=== PATIENT | male | born 1940 | race Caucasian/White ===

== ENCOUNTER 2016-06-29 07:05 | Emergency (ER) | payer MEDICARE, BC, OTHER ==
[2016-06-29] MEDS: SODIUM CHLORIDE 0.9% 500 ML IV ONE ×2 (07:57→09:07)
[2016-06-29 08:04] LABS: HEMATOCRIT 46.7 % (42.0-52.0); HEMOGLOBIN 15.4 gm/dl (14.0-18.0); MEAN CELL VOLUME 98.3 fl (81-97); MEAN CORPUSCULAR HEMOGLOBIN 32.4 pg (27-33); MEAN PLATELET VOLUME 11.4 fl (7.4-10.4); PLATELET COUNT 177 K/uL (130-400); RED BLOOD COUNT 4.75 M/uL (4.40-5.70); RED CELL DISTRIBUTION WIDTH 12.9 % (11.5-14.5); WHITE BLOOD COUNT W/O DIFF 11.9 K/uL (4.2-12.2)
[2016-06-29 08:13] LABS: STREP A SCREEN NEGATIVE (NEGATIVE)
[2016-06-29 08:16] LABS: LACTIC ACID 2.5 mmol/L (0.7-2.1)
[2016-06-29 08:18] LABS: BLOOD UREA NITROGEN 24 mg/dL (9-20); CREATININE 1.2 mg/dL (0.66-1.25); EST GLOMERULAR FILTRATION RATE > 60 ml/min; GLUCOSE,RANDOM 96 mg/dL (70-110); TOTAL PROTEIN 7.7 gm/dL (6.3-8.2)
[2016-06-29 08:19] LABS: ALB/GLOB RATIO 1.3 (1.1-1.8); ALBUMIN 4.3 gm/dL (3.5-5.0); ALKALINE PHOSPHATASE 80 U/L (38-126); ALT/SGPT 17 U/L (21-72); AST/SGOT 34 U/L (17-59); PLATELET ESTIMATE NORMAL (NORMAL)
[2016-06-29 08:20] LABS: INFLUENZA A NEGATIVE (NEGATIVE); INFLUENZA B NEGATIVE (NEGATIVE)
[2016-06-29 08:54] LABS: URINE APPEARANCE CLEAR; URINE BILIRUBIN NEGATIVE (NEGATIVE); URINE BLOOD SMALL (NEGATIVE); URINE COLOR YELLOW; URINE GLUCOSE (UA) NEGATIVE (NEGATIVE); URINE KETONE NEGATIVE (NEGATIVE); URINE LEUKOCYTE ESTERASE NEGATIVE (NEGATIVE); URINE NITRITE NEGATIVE (NEGATIVE); URINE PROTEIN NEGATIVE (NEGATIVE); URINE UROBILINOGEN 0.2 E.U./dL (0.20 - 1.00)
[2016-06-29 09:12] LABS: URINE EPITHELIAL CELLS NONE SEEN (FEW); URINE WBC NONE SEEN (0-2/hpf)
--- NOTE | 2016-06-29 09:40 | Emergency Department Record ---
History of Present Illness - General Chief Complaint: Dizziness Stated Complaint: DIZZY/FEVER/BALANCE OFF Time Seen by Provider: 06/29/16 07:33 Source: Patient Mode of Arrival: Wheelchair Limitations: No limitations - History of Present Illness Initial Comments: pt had fever of 103 w chills during night. now he feels better. no cough, ap, n/v, leal,or sores. family has had strep MD Complaint: Other Onset/Timin -: Hour(s) Timing: Awoke with symptoms Description: Other History of Same: No History of Trauma: No Severity: Mild Improves With: Nothing Worsens With: Nothing Associated Symptoms: Fever/chills, Other - [place] Coma Scale Eye Response: (4) Open spontaneously Motor Response: (6) Obeys commands Verbal Response: (5) Oriented [place] Total: 15 - Related Data Home Medications Medication Instructions Recorded Confirmed Last Taken Aspirin Chewable 81 mg PO DAILY 06/29/16 06/29/16 06/28/16 Calcium Carbonate [Tums] 500 mg PO DAILY 06/29/16 06/29/16 06/28/16 Cholecalciferol (Vitamin D3) 1,000 unit PO BID 06/29/16 06/29/16 Unknown [Vitamin D3] Famotidine [Famotidine] 40 oz PO DAILY 06/29/16 06/29/16 Unknown Levothyroxine Sodium 112 mcg PO QAM 06/29/16 06/29/16 06/29/16 [Levothyroxine Sodium] Lisinopril 10 mg PO DAILY 06/29/16 06/29/16 06/28/16 Polyethylene Glycol 3350 [Miralax] 238 gm PO DAILY 06/29/16 06/29/16 Unknown Simvastatin [Simvastatin] 20 mg PO DAILY 06/29/16 06/29/16 06/28/16 Allergies Allergy/AdvReac Type Severity Reaction Status Date / Time Sulfa (Sulfonamide Allergy Unknown PT UNSURE Verified 06/29/16 07:19 Antibiotics) OF REACTION sulfacetamide Allergy Unknown PT UNSURE Verified 06/29/16 07:19 OF REACTION Allergies: Allergy Unknown pt does Uncoded 06/29/16 07:19 not have any allergies Travel Screening - Travel/Exposure Within Last 30 Days Have you traveled within the last 30 days?: No Review of Systems Reviewed: No additional complaints except as noted below Constitutional: Reports: As per HPI. Denies: Chills, Fever, Malaise, Night sweats, Weakness, Weight change Eyes: Reports: As per HPI. Denies: Eye discharge, Eye pain, Photophobia, Vision change ENT: Reports: As per HPI. Denies: Congestion, Dental pain, Ear pain, Epistaxis , Hearing loss, Throat pain Respiratory: Reports: As per HPI. Denies: Cough, Dyspnea, Hemoptysis, Stridor, Wheezes Cardiovascular: Reports: As per HPI. Denies: Arrhythmia, Chest pain, Dyspnea on exertion, Edema, Murmurs, Orthopnea, Palpitations, Paroxysmal nocturnal dyspnea, Rheumatic Fever, Syncope Endocrine: Reports: As per HPI. Denies: Fatigue, Heat or cold intolerance, Polydipsia, Polyuria Gastrointestinal: Reports: As per HPI. Denies: Abdominal pain, Constipation, Diarrhea, Hematemesis, Hematochezia, Melena, Nausea, Vomiting Genitourinary: Reports: As per HPI. Denies: Dysuria, Frequency, Hematuria, Incontinence, Retention, Testicular pain, Testicular mass, Urgency Musculoskeletal: Reports: As per HPI. Denies: Arthralgia, Back pain, Gout, Joint swelling, Myalgia, Neck pain Skin: Reports: As per HPI. Denies: Bruising, Change in color, Change in hair/ nails, Lesions, Pruritus, Rash Neurological: Reports: As per HPI. Denies: Abnormal gait, Confusion, Headache, Numbness, Paresthesias, Seizure, Tingling, Tremors, Vertigo, Weakness Psychiatric: Reports: As per HPI. Denies: Anxiety, Auditory hallucinations, Depression, Homicidal thoughts, Suicidal thoughts, Visual hallucinations Hematological/Lymphatic: Reports: As per HPI. Denies: Anemia, Blood Clots, Easy bleeding, Easy bruising, Swollen glands Past Medical History - SOCIAL HISTORY Smoking Status: Current every day smoker Alcohol Use: None Drug Use: None - RESPIRATORY Hx Respiratory Disorders: Yes Hx COPD: Yes Hx Sleep Apnea: Yes Hx of CPAP: No - CARDIOVASCULAR Hx Cardio Disorders: Yes Hx Hypertension: Yes Comment:: hyperlipidemia - NEURO Hx Neuro Disorders: No - GI Hx GI Disorders: Yes Hx Diverticulitis: Yes Hx Reflux: Yes Hx Ulcer: Yes Hx of Polyps: Yes - Hx Genitourinary Disorders: Yes Hx Kidney Stones: Yes Hx Prostate Problems: Yes (enlarged) - ENDOCRINE Hx Endocrine Disorders: Yes Hx Thyroid Disease: Yes - MUSCULOSKELETAL Hx Musculoskeletal Disorders: Yes - PSYCH Hx Psych Problems: No - HEMATOLOGY/ONCOLOGY Hx Hematology/Oncology Disorders: Yes Hx Cancer: Yes (thyroid) Family Medical History Any Significant Family History?: Yes Hx Heart Disease: Father, Mother Physical Exam - General General Appearance: Alert, Oriented x3, Cooperative, Mild distress - Head Head exam: Normal inspection - Eye Eye exam: Normal appearance, PERRL, EOMI Pupils: Normal accommodation - ENT ENT exam: Normal exam, Mucous membranes moist, Normal external ear exam, Normal orophraynx Ear exam: Normal external inspection. negative: External canal tenderness Nasal Exam: Normal inspection. negative: Discharge, Sinus tenderness Mouth exam: Normal external inspection, Tongue normal Teeth exam: Normal inspection. negative: Dental caries Throat exam: Normal inspection. negative: Tonsillar erythema, Tonsillar exudate - Neck Neck exam: Normal inspection, Full ROM. negative: Tenderness - Respiratory Respiratory exam: Normal lung sounds bilaterally. negative: Respiratory distress - Cardiovascular Cardiovascular Exam: Regular rate, Normal rhythm, Normal heart sounds - GI/Abdominal GI/Abdominal exam: Soft, Normal bowel sounds. negative: Tenderness - Rectal Rectal exam: Deferred - exam: Deferred - Extremities Extremities exam: Normal inspection, Full ROM, Normal capillary refill. negative: Tenderness - Back Back exam: Reports: Normal inspection, Full ROM. Denies: Muscle spasm, Rash noted, Tenderness - Neurological Neurological exam: Alert, CN II-XII intact, Normal gait, Oriented X3 - Psychiatric Psychiatric exam: Normal affect, Normal mood - Skin Skin exam: Dry, Intact, Normal color, Warm Course Vital Signs 06/29/16 06/29/16 06/29/16 07:12 07:14 08:38 Temperature 99.5 F 99.5 F Pulse Rate 74 Pulse Rate [ 76 Pulse Ox Probe] Respiratory 20 18 Rate Blood Pressure 123/69 Blood Pressure 123/69 [Left Arm] Pulse Ox 96 91 L 94 L 06/29/16 08:44 Temperature 99.7 F H Pulse Rate Pulse Rate [ Pulse Ox Probe] Respiratory 20 Rate Blood Pressure Blood Pressure [Left Arm] Pulse Ox 94 L - Reevaluation(s) Reevaluation #1: 06/29/16 10:14 pts symptoms continue to be resolved. d/w dr heath. Medical Decision Making - Lab Data Result diagrams: 06/29/16 07:30 06/29/16 07:30 Lab Results 06/29/16 06/29/16 06/29/16 Range/Units 07:30 07:30 07:30 WBC 11.9 (4.2-12.2) K/uL RBC 4.75 (4.40-5.70) M/uL Hgb 15.4 (14.0-18.0) gm/dl Hct 46.7 (42.0-52.0) % MCV 98.3 H (81-97) fl MCH 32.4 (27-33) pg MCHC 33.0 (32-36) g/dl RDW 12.9 (11.5-14.5) % Plt Count 177 (130-400) K/uL MPV 11.4 H (7.4-10.4) fl Neutrophils % 88.0 H (47-80) % Band Neutrophils % 3.0 (0-5) % Lymphocytes % 7.0 L (16-45) % Monocytes % 2.0 (0-9) % Eosinophils % Not Reportable Basophils % Not Reportable Platelet Estimate Normal (NORMAL) RBC Morphology Normal Sodium 142 (136-145) mmol/L Potassium 4.5 (3.5-5.1) mmol/L Chloride 110 H (98-107) mmol/L Carbon Dioxide 23.0 (22-30) mmol/L Anion Gap 9.0 (7-16) BUN 24 H (9-20) mg/dL Creatinine 1.2 (0.66-1.25) mg/dL Estimated GFR > 60 ml/min Random Glucose 96 (70-110) mg/dL Lactic Acid 2.5 H (0.7-2.1) mmol/L Calcium 9.2 (8.5-10.1) mg/dL Total Bilirubin 1.10 (0.2-1.3) mg/dL AST 34 (17-59) U/L ALT 17 L (21-72) U/L Alkaline Phosphatase 80 (38-126) U/L Total Protein 7.7 (6.3-8.2) gm/dL Albumin 4.3 (3.5-5.0) gm/dL Globulin 3.4 (1.4-4.8) gm/dL Albumin/Globulin Ratio 1.3 (1.1-1.8) Urine Color Urine Appearance Urine pH (5.0-8.0) Ur Specific [place] (1.002-1.030) Urine Protein (NEGATIVE) Urine Glucose (UA) (NEGATIVE) Urine Ketones (NEGATIVE) Urine Blood (NEGATIVE) Urine Nitrite (NEGATIVE) Urine Bilirubin (NEGATIVE) Urine Urobilinogen (0.20 - 1.00) E.U./dL Ur Leukocyte Esterase (NEGATIVE) Urine RBC (NONE SEEN) Urine WBC (0-2/hpf) Ur Epithelial Cells (FEW) Influenza Type A Ag Negative (NEGATIVE) Influenza Type B Ag Negative (NEGATIVE) Group A Strep Screen Negative (NEGATIVE) 06/29/16 Range/Units 08:38 WBC (4.2-12.2) K/uL RBC (4.40-5.70) M/uL Hgb (14.0-18.0) gm/dl Hct (42.0-52.0) % MCV (81-97) fl MCH (27-33) pg MCHC (32-36) g/dl RDW (11.5-14.5) % Plt Count (130-400) K/uL MPV (7.4-10.4) fl Neutrophils % (47-80) % Band Neutrophils % (0-5) % Lymphocytes % (16-45) % Monocytes % (0-9) % Eosinophils % Basophils % Platelet Estimate (NORMAL) RBC Morphology Sodium (136-145) mmol/L Potassium (3.5-5.1) mmol/L Chloride (98-107) mmol/L Carbon Dioxide (22-30) mmol/L Anion Gap (7-16) BUN (9-20) mg/dL Creatinine (0.66-1.25) mg/dL Estimated GFR ml/min Random Glucose (70-110) mg/dL Lactic Acid (0.7-2.1) mmol/L Calcium (8.5-10.1) mg/dL Total Bilirubin (0.2-1.3) mg/dL AST (17-59) U/L ALT (21-72) U/L Alkaline Phosphatase (38-126) U/L Total Protein (6.3-8.2) gm/dL Albumin (3.5-5.0) gm/dL Globulin (1.4-4.8) gm/dL Albumin/Globulin Ratio (1.1-1.8) Urine Color Yellow Urine Appearance Clear Urine pH 5.5 (5.0-8.0) Ur Specific [place] 1.020 (1.002-1.030) Urine Protein Negative (NEGATIVE) Urine Glucose (UA) Negative (NEGATIVE) Urine Ketones Negative (NEGATIVE) Urine Blood Small H (NEGATIVE) Urine Nitrite Negative (NEGATIVE) Urine Bilirubin Negative (NEGATIVE) Urine Urobilinogen 0.2 (0.20 - 1.00) E.U./dL Ur Leukocyte Esterase Negative (NEGATIVE) Urine RBC 3 - 6 (NONE SEEN) Urine WBC None seen (0-2/hpf) Ur Epithelial Cells None seen (FEW) Influenza Type A Ag (NEGATIVE) Influenza Type B Ag (NEGATIVE) Group A Strep Screen (NEGATIVE) Disposition Disposition: Discharge Clinical Impression: Intermittent FUO Hypotension Qualifiers: Hypotension type: unspecified hypotension type Qualified Code(s): I95.9 - Hypotension, unspecified Disposition: Home, Self-Care Condition: (1) Good Instructions: Fever in Adults (ED), Hypotension (ED) Additional Instructions: recheck in 12 hours. return sooner if worse. hold lisonopril until sunday when you see dr heath. follow up with dr heath on sunday. rest. Forms: Patient Portal Access
== END 2016-06-29 10:34 | disposition home or self-care (01) ==
LOC: ER 07:05
DX: I95.9 Hypotension, unspecified (principal); R50.9 Fever, unspecified; R42 Dizziness and giddiness; J44.9 Chronic obstructive pulmonary disease, unspecified; I10 Essential (primary) hypertension; F17.210 Nicotine dependence, cigarettes, uncomplicated
CPT/HCPCS: 71020; 80053; 81001; 83605; 85027; 87400; 87880

== ENCOUNTER 2017-03-22 00:48 | Emergency (ER) | payer MEDICARE, BC, OTHER ==
[2017-03-22] MEDS ORDERED: 0.9 % SODIUM CHLORIDE 1,000 ML BAG IV ONE (01:13)
[2017-03-22 01:28] LABS: BASO % 0.2 % (0-6); EOS % 2.2 % (0-6); GRAN % 68.8 % (47-80); HEMATOCRIT 48.6 % (42.0-52.0); HEMOGLOBIN 16.6 gm/dl (14.0-18.0); LYMPH % 20.1 % (16-45); MEAN CELL VOLUME 97.8 fl (81-97); MEAN CORPUSCULAR HEMOGLOBIN 33.4 pg (27-33); MEAN CORPUSCULAR HGB CONC 34.2 g/dl (32-36); MEAN PLATELET VOLUME 10.6 fl (7.4-10.4); MONO % 8.7 % (0-9); PLATELET COUNT 185 K/uL (130-400); RED BLOOD COUNT 4.97 M/uL (4.40-5.70); RED CELL DISTRIBUTION WIDTH 13.1 % (11.5-14.5)
[2017-03-22 01:41] LABS: BLOOD UREA NITROGEN 23 mg/dL (8-23)
[2017-03-22 01:42] LABS: CREATININE 1.2 mg/dL (0.7-1.2); EST GLOMERULAR FILTRATION RATE > 60 mL/min; TOTAL PROTEIN 7.5 g/dL (6.6-8.7)
[2017-03-22 01:44] LABS: GLUCOSE,RANDOM 109 mg/dL (74-109)
[2017-03-22 01:47] LABS: ALB/GLOB RATIO 1.3 (1.1-1.8); ALBUMIN 4.2 g/dL (4.0-5.0); ALKALINE PHOSPHATASE 78 U/L (40-129); ALT/SGPT 9 U/L (<41); AST/SGOT 15 U/L (10.0-50.0); LIPASE 39 U/L (13-60)
[2017-03-22] MEDS ORDERED: LISINOPRIL 10 MG TABLET PO ONE (02:26)
--- NOTE | 2017-03-22 02:33 | Emergency Department Record ---
History of Present Illness - General Chief Complaint: Abdominal Pain Stated Complaint: ABD CRAMPING N/V/D Time Seen by Provider: 03/22/17 00:59 Source: Patient Mode of Arrival: Ambulatory Limitations: No limitations - History of Present Illness Initial Comments: pt has had nonstop diarrhea for 3 days. he has no n/v. prior to getting sick he ate at a [employer] restaurant and ate some meatloaf at home. no one around him is sick. he has abd pain in his llq. he has a hx of diverticulosis. MD Complaint: Abdominal pain Onset/Timin -: Days(s) Location: LLQ Severity: Mild Quality: Cramping Consistency: Constant Improves With: Nothing Worsens With: Nothing Associated Symptoms: Diarrhea, Nausea - Related Data Home Medications Medication Instructions Recorded Confirmed Last Taken Lisinopril [Lisinopril] 10 mg PO DAILY 03/22/17 03/22/17 Unknown Previous Rx's Medication Instructions Recorded Dicyclomine HCl [Bentyl] 10 mg PO Q8H #14 cap 03/22/17 Nitazoxanide [Alinia] 500 mg PO BID #6 tablet 03/22/17 Allergies Allergy/AdvReac Type Severity Reaction Status Date / Time Sulfa (Sulfonamide Allergy Unknown PT UNSURE Verified 06/29/16 07:19 Antibiotics) OF REACTION Travel Screening - Travel/Exposure Within Last 30 Days Have you traveled within the last 30 days?: No - Travel/Exposure Within Last Year Have you traveled outside the [place] in the last year?: No - Additonal Travel Details Have you been exposed to anyone with a communicable illness?: No - Travel Symptoms Symptom Screening: None Review of Systems Reviewed: No additional complaints except as noted below Constitutional: Reports: As per HPI. Denies: Chills, Fever, Malaise, Night sweats, Weakness, Weight change Eyes: Reports: As per HPI. Denies: Eye discharge, Eye pain, Photophobia, Vision change ENT: Reports: As per HPI. Denies: Congestion, Dental pain, Ear pain, Epistaxis , Hearing loss, Throat pain Respiratory: Reports: As per HPI. Denies: Cough, Dyspnea, Hemoptysis, Stridor, Wheezes Cardiovascular: Reports: As per HPI. Denies: Arrhythmia, Chest pain, Dyspnea on exertion, Edema, Murmurs, Orthopnea, Palpitations, Paroxysmal nocturnal dyspnea, Rheumatic Fever, Syncope Endocrine: Reports: As per HPI. Denies: Fatigue, Heat or cold intolerance, Polydipsia, Polyuria Gastrointestinal: Reports: As per HPI, Abdominal pain, Diarrhea. Denies: Constipation, Hematemesis, Hematochezia, Melena, Nausea, Vomiting Genitourinary: Reports: As per HPI. Denies: Dysuria, Frequency, Hematuria, Incontinence, Retention, Testicular pain, Testicular mass, Urgency Musculoskeletal: Reports: As per HPI. Denies: Arthralgia, Back pain, Gout, Joint swelling, Myalgia, Neck pain Skin: Reports: As per HPI. Denies: Bruising, Change in color, Change in hair/ nails, Lesions, Pruritus, Rash Neurological: Reports: As per HPI. Denies: Abnormal gait, Confusion, Headache, Numbness, Paresthesias, Seizure, Tingling, Tremors, Vertigo, Weakness Psychiatric: Reports: As per HPI. Denies: Anxiety, Auditory hallucinations, Depression, Homicidal thoughts, Suicidal thoughts, Visual hallucinations Hematological/Lymphatic: Reports: As per HPI. Denies: Anemia, Blood Clots, Easy bleeding, Easy bruising, Swollen glands Past Medical History - SOCIAL HISTORY Smoking Status: Current every day smoker Alcohol Use: None Drug Use: None - RESPIRATORY Hx Respiratory Disorders: Yes Hx COPD: Yes Hx Sleep Apnea: Yes Hx of CPAP: No - CARDIOVASCULAR Hx Cardio Disorders: Yes Hx Hypertension: Yes Comment:: hyperlipidemia - NEURO Hx Neuro Disorders: No - GI Hx GI Disorders: Yes Hx Diverticulitis: Yes Hx Reflux: Yes Hx Ulcer: Yes Hx of Polyps: Yes - Hx Genitourinary Disorders: Yes Hx Kidney Stones: Yes Hx Prostate Problems: Yes (enlarged) - ENDOCRINE Hx Endocrine Disorders: Yes Hx Thyroid Disease: Yes - MUSCULOSKELETAL Hx Musculoskeletal Disorders: Yes - PSYCH Hx Psych Problems: No - HEMATOLOGY/ONCOLOGY Hx Hematology/Oncology Disorders: Yes Hx Cancer: Yes (thyroid) Family Medical History Any Significant Family History?: Yes Hx Heart Disease: Father, Mother Physical Exam - General General Appearance: Alert, Oriented x3, Cooperative, Mild distress - Head Head exam: Normal inspection - Eye Eye exam: Normal appearance, PERRL, EOMI Pupils: Normal accommodation - ENT ENT exam: Normal exam, Mucous membranes moist, Normal external ear exam, Normal orophraynx, TM's normal bilaterally Ear exam: Normal external inspection. negative: External canal tenderness Nasal Exam: Normal inspection. negative: Discharge, Sinus tenderness Mouth exam: Normal external inspection, Tongue normal Teeth exam: Normal inspection. negative: Dental caries Throat exam: Normal inspection. negative: Tonsillar erythema, Tonsillar exudate - Neck Neck exam: Normal inspection, Full ROM. negative: Tenderness - Respiratory Respiratory exam: Normal lung sounds bilaterally. negative: Respiratory distress - Cardiovascular Cardiovascular Exam: Regular rate, Normal rhythm, Normal heart sounds - GI/Abdominal GI/Abdominal exam: Soft, Normal bowel sounds, Distended, Tenderness (llq) - Rectal Rectal exam: Deferred - exam: Deferred - Extremities Extremities exam: Normal inspection, Full ROM, Normal capillary refill. negative: Tenderness - Back Back exam: Reports: Normal inspection, Full ROM. Denies: Muscle spasm, Rash noted, Tenderness - Neurological Neurological exam: Alert, CN II-XII intact, Normal gait, Oriented X3 - Psychiatric Psychiatric exam: Normal affect, Normal mood - Skin Skin exam: Dry, Intact, Normal color, Warm Course Vital Signs 03/22/17 03/22/17 03/22/17 00:51 02:08 02:26 Temperature 98.1 F Pulse Rate 59 L Pulse Rate [ 56 L Pulse Ox Probe] Respiratory 20 20 Rate Blood Pressure 186/101 Blood Pressure 204/108 197/110 [Left Arm] Pulse Ox 92 L 94 L Medical Decision Making - Lab Data Result diagrams: 03/22/17 01:03 03/22/17 01:03 Lab Results 03/22/17 03/22/17 Range/Units 01:03 01:03 WBC 12.0 (4.2-12.2) K/uL RBC 4.97 (4.40-5.70) M/uL Hgb 16.6 (14.0-18.0) gm/dl Hct 48.6 (42.0-52.0) % MCV 97.8 H (81-97) fl MCH 33.4 H (27-33) pg MCHC 34.2 (32-36) g/dl RDW 13.1 (11.5-14.5) % Plt Count 185 (130-400) K/uL MPV 10.6 H (7.4-10.4) fl Gran % 68.8 (47-80) % Lymphocytes % 20.1 (16-45) % Monocytes % 8.7 (0-9) % Eosinophils % 2.2 (0-6) % Basophils % 0.2 (0-6) % Sodium 141 (136-145) mmol/L Potassium 3.5 (3.4-4.5) mmol/L Chloride 98 (98-107) mmol/L Carbon Dioxide 29.0 (22-29) mmol/L Anion Gap 14.0 (7-16) BUN 23 (8-23) mg/dL Creatinine 1.2 (0.7-1.2) mg/dL Estimated GFR > 60 mL/min Random Glucose 109 (74-109) mg/dL Calcium 9.7 (8.8-10.2) mg/dL Total Bilirubin 0.70 (0.2-1.0) mg/dL AST 15 (10.0-50.0) U/L ALT 9 (<41) U/L Alkaline Phosphatase 78 (40-129) U/L Total Protein 7.5 (6.6-8.7) g/dL Albumin 4.2 (4.0-5.0) g/dL Globulin 3.3 (1.4-4.8) gm/dL Albumin/Globulin Ratio 1.3 (1.1-1.8) Lipase 39 (13-60) U/L Disposition Disposition: Discharge Clinical Impression: Diarrhea due to cryptosporidium Hypertension Qualifiers: Hypertension type: essential hypertension Qualified Code(s): I10 - Essential ( primary) hypertension Disposition: Home, Self-Care Condition: (1) Good Instructions: Traveler's Diarrhea (ED), Chronic Hypertension (ED) Additional Instructions: push fluids. follow up with family doctor. return sooner if worse. start taking blood pressure medicine again Prescriptions: Dicyclomine HCl [Bentyl] 10 mg PO Q8H #14 cap Nitazoxanide [Alinia] 500 mg PO BID #6 tablet Forms: Patient Portal Access Quality - Quality Measures Quality Measures: N/A - Blood Pressure Screening Does Patient Have Any of the Following: Active Dx of HTN Blood Pressure Classification: Hypertensive Reading Systolic Measurement: 186 Diastolic Measurement: 101 Screening for High Blood Pressure: Patient Exclusion, Hx of HTN [[id number]]
[2017-03-22 03:48] LABS: URINE APPEARANCE CLEAR; URINE BILIRUBIN NEGATIVE (NEGATIVE); URINE BLOOD TRACE-I (NEGATIVE); URINE COLOR YELLOW; URINE GLUCOSE (UA) NEGATIVE (NEGATIVE); URINE KETONE NEGATIVE (NEGATIVE); URINE LEUKOCYTE ESTERASE NEGATIVE (NEGATIVE); URINE NITRITE NEGATIVE (NEGATIVE); URINE PROTEIN NEGATIVE (NEGATIVE); URINE UROBILINOGEN 0.2 E.U./dL (0.20 - 1.00)
[2017-03-22 03:56] LABS: URINE BACTERIA NONE SEEN; URINE EPITHELIAL CELLS 0 - 2 (FEW); URINE RBC 0 - 2 (NONE SEEN); URINE WBC 0 - 2 (0-2/hpf)
[2017-03-22 04:05] LABS: CRYPTOSPORIDIUM PARVUM ANTIGEN DETECTED (NOT DETECT); GIARDIA LAMBLIA ANTIGEN NOT DETECTED (NOT DETECT); ROTOVIRUS NOT DETECTED (NOT DETECT)
[2017-03-22] MEDS ORDERED: DICYCLOMINE HCL 10 MG CAPSULE PO ONE (04:57)
[2017-03-22 05:10] LABS: MOLECULAR C DIFF TOXIN SCREEN DETECTED (NOT DETECT)
[2017-03-22] MEDS ORDERED: METRONIDAZOLE 250 MG TABLET PO ONE (05:16)
--- NOTE | 2017-03-22 05:18 | Emergency Department Record ---
History of Present Illness - General Chief Complaint: Abdominal Pain Stated Complaint: ABD CRAMPING N/V/D Time Seen by Provider: 03/22/17 00:59 Source: Patient Mode of Arrival: Ambulatory Limitations: No limitations - History of Present Illness MD Complaint: Abdominal pain Onset/Timin -: Days(s) Location: LLQ Severity: Mild Quality: Cramping Consistency: Constant Improves With: Nothing Worsens With: Nothing Associated Symptoms: Diarrhea, Nausea - Related Data Home Medications Medication Instructions Recorded Confirmed Last Taken Lisinopril [Lisinopril] 10 mg PO DAILY 03/22/17 03/22/17 Unknown Previous Rx's Medication Instructions Recorded Dicyclomine HCl [Bentyl] 10 mg PO Q8H #14 cap 03/22/17 Metronidazole [Flagyl] 500 mg PO Q8HR #30 tablet 03/22/17 Nitazoxanide [Alinia] 500 mg PO BID #6 tablet 03/22/17 Allergies Allergy/AdvReac Type Severity Reaction Status Date / Time Sulfa (Sulfonamide Allergy Unknown PT UNSURE Verified 06/29/16 07:19 Antibiotics) OF REACTION Travel Screening - Travel/Exposure Within Last 30 Days Have you traveled within the last 30 days?: No - Travel/Exposure Within Last Year Have you traveled outside the [place] in the last year?: No - Additonal Travel Details Have you been exposed to anyone with a communicable illness?: No - Travel Symptoms Symptom Screening: None Review of Systems Constitutional: Reports: As per HPI. Denies: Chills, Fever, Malaise, Night sweats, Weakness, Weight change Eyes: Reports: As per HPI. Denies: Eye discharge, Eye pain, Photophobia, Vision change ENT: Reports: As per HPI. Denies: Congestion, Dental pain, Ear pain, Epistaxis , Hearing loss, Throat pain Respiratory: Reports: As per HPI. Denies: Cough, Dyspnea, Hemoptysis, Stridor, Wheezes Cardiovascular: Reports: As per HPI. Denies: Arrhythmia, Chest pain, Dyspnea on exertion, Edema, Murmurs, Orthopnea, Palpitations, Paroxysmal nocturnal dyspnea, Rheumatic Fever, Syncope Endocrine: Reports: As per HPI. Denies: Fatigue, Heat or cold intolerance, Polydipsia, Polyuria Gastrointestinal: Reports: As per HPI, Abdominal pain, Diarrhea. Denies: Constipation, Hematemesis, Hematochezia, Melena, Nausea, Vomiting Genitourinary: Reports: As per HPI. Denies: Dysuria, Frequency, Hematuria, Incontinence, Retention, Testicular pain, Testicular mass, Urgency Musculoskeletal: Reports: As per HPI. Denies: Arthralgia, Back pain, Gout, Joint swelling, Myalgia, Neck pain Skin: Reports: As per HPI. Denies: Bruising, Change in color, Change in hair/ nails, Lesions, Pruritus, Rash Neurological: Reports: As per HPI. Denies: Abnormal gait, Confusion, Headache, Numbness, Paresthesias, Seizure, Tingling, Tremors, Vertigo, Weakness Psychiatric: Reports: As per HPI. Denies: Anxiety, Auditory hallucinations, Depression, Homicidal thoughts, Suicidal thoughts, Visual hallucinations Hematological/Lymphatic: Reports: As per HPI. Denies: Anemia, Blood Clots, Easy bleeding, Easy bruising, Swollen glands Past Medical History - SOCIAL HISTORY Smoking Status: Current every day smoker Alcohol Use: None Drug Use: None - RESPIRATORY Hx Respiratory Disorders: Yes Hx COPD: Yes Hx Sleep Apnea: Yes Hx of CPAP: No - CARDIOVASCULAR Hx Cardio Disorders: Yes Hx Hypertension: Yes Comment:: hyperlipidemia - NEURO Hx Neuro Disorders: No - GI Hx GI Disorders: Yes Hx Diverticulitis: Yes Hx Reflux: Yes Hx Ulcer: Yes Hx of Polyps: Yes - Hx Genitourinary Disorders: Yes Hx Kidney Stones: Yes Hx Prostate Problems: Yes (enlarged) - ENDOCRINE Hx Endocrine Disorders: Yes Hx Thyroid Disease: Yes - MUSCULOSKELETAL Hx Musculoskeletal Disorders: Yes - PSYCH Hx Psych Problems: No - HEMATOLOGY/ONCOLOGY Hx Hematology/Oncology Disorders: Yes Hx Cancer: Yes (thyroid) Family Medical History Any Significant Family History?: Yes Hx Heart Disease: Father, Mother Physical Exam - General Limitations: No limitations Course Vital Signs 03/22/17 03/22/17 03/22/17 00:51 02:08 02:26 Temperature 98.1 F Pulse Rate 59 L Pulse Rate [ 56 L Pulse Ox Probe] Respiratory 20 20 Rate Blood Pressure 186/101 Blood Pressure 204/108 197/110 [Left Arm] Pulse Ox 92 L 94 L 03/22/17 03/22/17 03:13 04:50 Temperature 97.7 F Pulse Rate Pulse Rate [ 54 L 61 Pulse Ox Probe] Respiratory 18 20 Rate Blood Pressure Blood Pressure 188/101 172/93 [Left Arm] Pulse Ox 93 L 92 L Medical Decision Making - Lab Data Result diagrams: 03/22/17 01:03 03/22/17 01:03 Lab Results 03/22/17 03/22/17 03/22/17 Range/Units 01:03 01:03 03:55 WBC 12.0 (4.2-12.2) K/uL RBC 4.97 (4.40-5.70) M/uL Hgb 16.6 (14.0-18.0) gm/dl Hct 48.6 (42.0-52.0) % MCV 97.8 H (81-97) fl MCH 33.4 H (27-33) pg MCHC 34.2 (32-36) g/dl RDW 13.1 (11.5-14.5) % Plt Count 185 (130-400) K/uL MPV 10.6 H (7.4-10.4) fl Gran % 68.8 (47-80) % Lymphocytes % 20.1 (16-45) % Monocytes % 8.7 (0-9) % Eosinophils % 2.2 (0-6) % Basophils % 0.2 (0-6) % Sodium 141 (136-145) mmol/L Potassium 3.5 (3.4-4.5) mmol/L Chloride 98 (98-107) mmol/L Carbon Dioxide 29.0 (22-29) mmol/L Anion Gap 14.0 (7-16) BUN 23 (8-23) mg/dL Creatinine 1.2 (0.7-1.2) mg/dL Estimated GFR > 60 mL/min Random Glucose 109 (74-109) mg/dL Calcium 9.7 (8.8-10.2) mg/dL Total Bilirubin 0.70 (0.2-1.0) mg/dL AST 15 (10.0-50.0) U/L ALT 9 (<41) U/L Alkaline Phosphatase 78 (40-129) U/L Total Protein 7.5 (6.6-8.7) g/dL Albumin 4.2 (4.0-5.0) g/dL Globulin 3.3 (1.4-4.8) gm/dL Albumin/Globulin Ratio 1.3 (1.1-1.8) Lipase 39 (13-60) U/L Urine Color Yellow Urine Appearance Clear Urine pH 7.0 (5.0-8.0) Ur Specific [place] 1.010 (1.002-1.030) Urine Protein Negative (NEGATIVE) Urine Glucose (UA) Negative (NEGATIVE) Urine Ketones Negative (NEGATIVE) Urine Blood Trace-i (NEGATIVE) Urine Nitrite Negative (NEGATIVE) Urine Bilirubin Negative (NEGATIVE) Urine Urobilinogen 0.2 (0.20 - 1.00) E.U./dL Ur Leukocyte Esterase Negative (NEGATIVE) Urine RBC 0 - 2 (NONE SEEN) Urine WBC 0 - 2 (0-2/hpf) Ur Epithelial Cells 0 - 2 (FEW) Urine Bacteria None seen Stool Occult Blood (NEGATIVE) Stool for White Cells (NO WBC'S) Rotavirus Antigen (NOT DETECT) C. difficile Ag & Toxin (NOT DETECT) Cryptosporid parvum Ag (NOT DETECT) Giardia lamblia Ag (NOT DETECT) 03/22/17 03/22/17 03/22/17 Range/Units 03:55 03:56 03:56 WBC (4.2-12.2) K/uL RBC (4.40-5.70) M/uL Hgb (14.0-18.0) gm/dl Hct (42.0-52.0) % MCV (81-97) fl MCH (27-33) pg MCHC (32-36) g/dl RDW (11.5-14.5) % Plt Count (130-400) K/uL MPV (7.4-10.4) fl Gran % (47-80) % Lymphocytes % (16-45) % Monocytes % (0-9) % Eosinophils % (0-6) % Basophils % (0-6) % Sodium (136-145) mmol/L Potassium (3.4-4.5) mmol/L Chloride (98-107) mmol/L Carbon Dioxide (22-29) mmol/L Anion Gap (7-16) BUN (8-23) mg/dL Creatinine (0.7-1.2) mg/dL Estimated GFR mL/min Random Glucose (74-109) mg/dL Calcium (8.8-10.2) mg/dL Total Bilirubin (0.2-1.0) mg/dL AST (10.0-50.0) U/L ALT (<41) U/L Alkaline Phosphatase (40-129) U/L Total Protein (6.6-8.7) g/dL Albumin (4.0-5.0) g/dL Globulin (1.4-4.8) gm/dL Albumin/Globulin Ratio (1.1-1.8) Lipase (13-60) U/L Urine Color Urine Appearance Urine pH (5.0-8.0) Ur Specific [place] (1.002-1.030) Urine Protein (NEGATIVE) Urine Glucose (UA) (NEGATIVE) Urine Ketones (NEGATIVE) Urine Blood (NEGATIVE) Urine Nitrite (NEGATIVE) Urine Bilirubin (NEGATIVE) Urine Urobilinogen (0.20 - 1.00) E.U./dL Ur Leukocyte Esterase (NEGATIVE) Urine RBC (NONE SEEN) Urine WBC (0-2/hpf) Ur Epithelial Cells (FEW) Urine Bacteria Stool Occult Blood Positive H (NEGATIVE) Stool for White Cells No wbc's observed (NO WBC'S) Rotavirus Antigen Not detected (NOT DETECT) C. difficile Ag & Toxin Detected H (NOT DETECT) Cryptosporid parvum Ag Detected H (NOT DETECT) Giardia lamblia Ag Not detected (NOT DETECT) Disposition Disposition: Discharge Clinical Impression: Diarrhea due to cryptosporidium, C. difficile diarrhea Hypertension Qualifiers: Hypertension type: essential hypertension Qualified Code(s): I10 - Essential ( primary) hypertension Disposition: Home, Self-Care Condition: (1) Good Instructions: Traveler's Diarrhea (ED), Chronic Hypertension (ED), Clostridium Difficile Infection (ED) Additional Instructions: push fluids. follow up with family doctor. return sooner if worse. start taking blood pressure medicine again Prescriptions: Metronidazole [Flagyl] 500 mg PO Q8HR #30 tablet Dicyclomine HCl [Bentyl] 10 mg PO Q8H #14 cap Nitazoxanide [Alinia] 500 mg PO BID #6 tablet Forms: Patient Portal Access Quality - Quality Measures Quality Measures: N/A - Blood Pressure Screening Does Patient Have Any of the Following: Active Dx of HTN Blood Pressure Classification: Hypertensive Reading Systolic Measurement: 186 Diastolic Measurement: 101 Screening for High Blood Pressure: Patient Exclusion, Hx of HTN [G9744]
--- NOTE | 2017-03-23 07:57 | CT SCAN REPORT ---
DATE: 03/22/2017. EXAM: EMERGENCY CT OF THE ABDOMEN AND PELVIS WITH CONTRAST. HISTORY: Left lower quadrant pain and tenderness. Diarrhea, vomiting, and stomach cramps. TECHNIQUE: Axial CT scan of the abdomen and pelvis was performed following both oral and intravenous contrast administration utilizing a dose of 100 mL of Omnipaque 300 as the intravenous contrast. Preliminary report provided by [facility]. COMPARISON: CT dated 09/14/2012. SURGICAL HISTORY: Cholecystectomy, thyroidectomy, ulcer surgery. FINDINGS: Gallbladder not identified consistent with the surgical history. No definite hepatic or splenic mass seen. Several calcified splenic foci are evident consistent with calcified splenic granulomas. Slight fullness of the left adrenal similar to before. Right adrenal appears unremarkable. No pancreatic mass identified. There is a 2.1 cm cyst in the lower pole of the left kidney with a CT density of 17 consistent with a cyst. This was present previously as well. However, there appears to be a new small mass about 1.4 cm in size posteriorly in the mid portion of the left kidney which was not clearly seen previously. This has a CT density of about 73 and is indeterminate. Small , solid renal mass cannot be excluded. Follow-up, nonemergent MRI of the kidneys is suggested. There is an approximately 1.2 cm cyst in the peripelvic region of the left kidney with a CT density of 17 consistent with a cyst as well. There are probably a couple of very tiny cysts in the right kidney too small to accurately measure. Postoperative changes in the region of the stomach, also present previously. There is borderline aneurysmal dilatation of the infrarenal abdominal aorta measuring about 3.0 cm in diameter. Possible transurethral resection defect in the prostate. Mild diverticulosis seen in the sigmoid colon. There is a thick-walled appearance of the upper sigmoid colon. No prominent adjacent inflammatory type change seen, and the possibility of sigmoid colon malignancy is raised. Less likely, this could be sequela of recent diverticulitis. There is slight thickening of the adjacent fascia laterally. Follow-up sigmoidoscopy is suggested. There is diverticulosis elsewhere in the colon as well. There also appears to be some mild relative dilatation of the colon proximal to the area of upper sigmoid colon wall thickening, and a low-grade obstruction related to this area of narrowing cannot be excluded. Some areas seen distal to this in the more distal sigmoid and rectum as well. Appendix not well seen, but no appendicitis is evident. There are two small nodules seen in the right lower lung lobe. These are both identified on a prior chest CTA dated 12/23/2011 and appear essentially unchanged. They are probably small granulomas. No free intraperitoneal air or free intraperitoneal fluid evident. Bilateral spondylolysis at L5 with slight spondylolisthesis of L5 on S1. There is also degenerative disc disease at the lumbosacral interspace along with other lumbar interspaces. IMPRESSION: 1. FOCAL THICKENING OF A SEGMENT OF UPPER SIGMOID COLON. THERE ARE DIVERTICULA IN THIS REGION BUT NO CONVINCING EVIDENCE OF ACUTE DIVERTICULITIS CURRENTLY, AND THE POSSIBILITY OF SIGMOID COLON MALIGNANCY CANNOT BE EXCLUDED. FOLLOW-UP COLONOSCOPY IS SUGGESTED. SOME THICKENING OF THE ADJACENT LATERAL CORONAL FASCIA. A COUPLE OF SLIGHTLY PROMINENT LYMPH NODES IN THIS REGION WELL ARE NONSPECIFIC. THERE IS MILD DILATATION OF THE COLON PROXIMAL TO THIS. 2. 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 3. A COUPLE OF LEFT RENAL CYSTS BUT ALSO AN INDETERMINATE 1.4 CM MASS POSTERIORLY IN THE LEFT KIDNEY. FOLLOW-UP RENAL MRI SUGGESTED IF NOT CONTRAINDICATED. 4. POSTOPERATIVE CHOLECYSTECTOMY AND POSTOPERATIVE CHANGES INVOLVING THE STOMACH. POSSIBLE TRANSURETHRAL RESECTION DEFECT IN THE PROSTATE. 5. 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 MULTILEVEL DEGENERATIVE DISC DISEASE IN THE LUMBAR SPINE WELL. 6. A COUPLE OF SMALL NODULES IN THE RIGHT BASE ALSO PRESENT ON 12/23/11 AND APPEARING ESSENTIALLY UNCHANGED, LIKELY A COUPLE OF SMALL GRANULOMAS. 7. REPORT OF THE INDETERMINATE LEFT RENAL MASS WITH SUGGESTION FOR MRI DISCUSSED BY MYSELF WITH DR. PARKS OF THE EMERGENCY DEPARTMENT AT PHONE NUMBER AT THE TIME OF DICTATION AT APPROXIMATELY 9:57 A.M. ON 03/22/17. JOB NUMBER: [id number] [facility]
== END 2017-03-22 05:32 | disposition home or self-care (01) ==
LOC: ER 00:48
DX: A04.72 Enterocolitis due to Clostridium difficile, not specified as recurrent (principal); R10.32 Left lower quadrant pain; R11.0 Nausea; I10 Essential (primary) hypertension; F17.210 Nicotine dependence, cigarettes, uncomplicated; E78.00 Pure hypercholesterolemia, unspecified
CPT/HCPCS: 99284 ×2; 96360; 96361; 84450; 84460; 83690; 87329; 85025; 80053; 81001; 89055; 87425; 80061; 87427; 82272; 87493; 74177; Q9967; J3490; J7030

== ENCOUNTER 2018-02-11 07:50 | Emergency (ER) | payer MEDICARE, BC, OTHER ==
--- NOTE | 2018-02-11 07:57 | Emergency Department Record ---
History of Present Illness - General Chief Complaint: Abdominal Pain Stated Complaint: ABD PAIN Time Seen by Provider: 02/11/18 07:55 Source: Patient Mode of Arrival: Ambulatory Limitations: No limitations - History of Present Illness Initial Comments: Pt to ED with lower midline abdominal pain. Hx of recent issues with constipation. Up at 2AM this AM with lower AP and tryign to have BM. Yesterday and single firm stool with relief of similar discomfort. No vomiting , no fever, no blood in stool. No recent change in weight. Pt lives alone and states he has "one good meal a day" and that his diet is "not so good". Has had colonoscopy in past that was "OK", last about 5 years ago. No urinary difficulty or pain. No home treatments tried for constipation. MD Complaint: Abdominal pain Onset/Timin -: Month(s) Location: Suprapubic Radiation: None Migration to: No migration Severity: Moderate Severity scale (1-10): 6 Quality: Cramping, Sharp Consistency: Intermittent Improves With: Bowel movement Worsens With: Nothing Associated Symptoms: Nausea - Related Data Home Medications Medication Instructions Recorded Confirmed Last Taken Carbidopa/Levodopa [Carbidopa-Levo 1 each PO DAILY 02/11/18 02/11/18 Unknown 25-100 mg Odt] Famotidine 40 mg PO DAILY 02/11/18 02/11/18 Unknown Gabapentin [Neurontin] 100 mg PO TID 02/11/18 02/11/18 Unknown Simvastatin 20 mg PO DAILY 02/11/18 02/11/18 Unknown Allergies Allergy/AdvReac Type Severity Reaction Status Date / Time Sulfa (Sulfonamide Allergy Unknown PT UNSURE Verified 06/29/16 07:19 Antibiotics) OF REACTION Review of Systems Constitutional: Denies: Chills, Fever, Weakness ENT: Denies: Congestion, Ear pain Respiratory: Denies: Cough, Dyspnea Cardiovascular: Denies: Arrhythmia, Chest pain, Palpitations Endocrine: Denies: Fatigue, Polydipsia, Polyuria Gastrointestinal: Reports: As per HPI, Abdominal pain, Constipation, Nausea. Denies: Diarrhea, Vomiting Genitourinary: Denies: Discharge, Dysuria, Hematuria, Retention Musculoskeletal: Denies: Arthralgia, Back pain Skin: Denies: Bruising Neurological: Denies: Abnormal gait, Headache, Weakness Psychiatric: Denies: Anxiety Hematological/Lymphatic: Denies: Anemia Past Medical History - SOCIAL HISTORY Smoking Status: Current every day smoker Drug Use: None - RESPIRATORY Hx Respiratory Disorders: Yes Hx COPD: Yes Hx Sleep Apnea: Yes Hx of CPAP: No - CARDIOVASCULAR Hx Cardio Disorders: Yes Hx Hypertension: Yes Comment:: hyperlipidemia - NEURO Hx Neuro Disorders: No - GI Hx GI Disorders: Yes Hx Diverticulitis: Yes Hx Reflux: Yes Hx Ulcer: Yes Hx of Polyps: Yes - Hx Genitourinary Disorders: Yes Hx Kidney Stones: Yes Hx Prostate Problems: Yes (enlarged) - ENDOCRINE Hx Endocrine Disorders: Yes Hx Thyroid Disease: Yes - MUSCULOSKELETAL Hx Musculoskeletal Disorders: Yes - PSYCH Hx Psych Problems: No - HEMATOLOGY/ONCOLOGY Hx Hematology/Oncology Disorders: Yes Hx Cancer: Yes (thyroid) Family Medical History Hx Heart Disease: Father, Mother Physical Exam - General General Appearance: Alert, Oriented x3, Cooperative, Mild distress - Head Head exam: Atraumatic - Eye Eye exam: Normal appearance, PERRL - ENT ENT exam: Normal exam, Mucous membranes moist, Normal external ear exam, Normal orophraynx, TM's normal bilaterally - Neck Neck exam: Normal inspection, Full ROM. negative: Tenderness - Respiratory Respiratory exam: Normal lung sounds bilaterally. negative: Respiratory distress, Wheezes - Cardiovascular Cardiovascular Exam: Regular rate, Normal rhythm, Normal heart sounds - GI/Abdominal GI/Abdominal exam: Soft, Normal bowel sounds, Tenderness (suprapubic. ). negative: Distended, Guarding, Mass - Rectal Rectal exam: Heme (-) stool, Normal rectal tone (large soft stool in rectal vault. ). negative: Hemorrhoids, Mass - Extremities Extremities exam: Normal inspection, Full ROM. negative: Tenderness - Back Back exam: Reports: Normal inspection. Denies: Paraspinal tenderness - Neurological Neurological exam: Alert, Normal gait, Oriented X3 - Psychiatric Psychiatric exam: Normal affect, Normal mood - Skin Skin exam: Normal color. negative: Rash Course - Reevaluation(s) Reevaluation #1: 02/11/18 09:14 Enema with good return of stool. Abdominal discomfort is resolved. Daughter at bedside. Discussed the need for Colonoscopy in the immediate future with Dr. Gonzales. Discussed concern for risk of cancer and need for exam. Pt and daughter understand. Will give MagCitrate here to drink at home with water after. Discussed with Dr. Spicer. Procedures - Stool Hemoccult Procedural Steps Taken: stool placed in appropria, developer placed on stool, controls appropriately po Hemoccult result: negative Medical Decision Making - Data Complexity MDM Data: Labs Ordered and/or Reviewed, X-Ray Ordered and/or Reviewed, Independent Visualization of Image, Tracing, or Specimen, Decision to Obtain Old Record, Review and Summary of Old Record Discussed - Lab Data Result diagrams: 02/11/18 08:10 02/11/18 08:10 - Radiology Data Radiology results: Image reviewed -: Radiology Exam Interpreted by Myself Disposition Disposition: Discharge Clinical Impression: Constipation Disposition: Home, Self-Care Condition: (2) Stable Instructions: Constipation (ED), Abdominal Pain (ED) Additional Instructions: Mag citrate at home today with water po after. Follow up with Dr. Spicer to schedule COLONOSCOPY in the near future, WITHOUT FAIL. Return to the ED if recurrent abd pain, nausea, vomiting, or concerns. Forms: Patient Portal Access Time of Disposition: 09:17 Quality - Quality Measures Quality Measures: N/A - Blood Pressure Screening Does Patient Have Any of the Following: No Blood Pressure Classification: Hypertensive Reading Systolic Measurement: 176 Diastolic Measurement: 99 Screening for High Blood Pressure: < Pre-Hypertensive BP, F/U Documented > [ G8950] Pre-Hypertensive Follow-up Interventions: Follow-up with rescreen every year.
[2018-02-11 08:19] LABS: BASO % 0.7 % (0-6); EOS % 4.4 % (0-6); GRAN % 63.1 % (47-80); HEMATOCRIT 49.8 % (42.0-52.0); HEMOGLOBIN 16.7 gm/dl (14.0-18.0); LYMPH % 25.2 % (16-45); MEAN CELL VOLUME 98.8 fl (81-97); MEAN CORPUSCULAR HEMOGLOBIN 33.1 pg (27-33); MEAN CORPUSCULAR HGB CONC 33.5 g/dl (32-36); MONO % 6.6 % (0-9); PLATELET COUNT 195 K/uL (130-400); RED BLOOD COUNT 5.04 M/uL (4.40-5.70); RED CELL DISTRIBUTION WIDTH 13.4 % (11.5-14.5); WHITE BLOOD COUNT W/O DIFF 8.9 K/uL (4.2-12.2)
[2018-02-11 08:29] LABS: BLOOD UREA NITROGEN 18 mg/dL (8-23); CREATININE 1.2 mg/dL (0.7-1.2); EST GLOMERULAR FILTRATION RATE > 60 mL/min
[2018-02-11 08:32] LABS: GLUCOSE,RANDOM 98 mg/dL (74-109)
[2018-02-11 09:05] LABS: URINE APPEARANCE CLEAR; URINE BILIRUBIN NEGATIVE (NEGATIVE); URINE BLOOD NEGATIVE (NEGATIVE); URINE COLOR YELLOW; URINE GLUCOSE (UA) NEGATIVE (NEGATIVE); URINE KETONE NEGATIVE (NEGATIVE); URINE LEUKOCYTE ESTERASE NEGATIVE (NEGATIVE); URINE NITRITE NEGATIVE (NEGATIVE); URINE PROTEIN NEGATIVE (NEGATIVE); URINE UROBILINOGEN 0.2 E.U./dL (0.20 - 1.00)
[2018-02-11] MEDS ORDERED: MAGNESIUM CITRATE 296 ML BTL PO ONE (09:17)
--- NOTE | 2018-02-13 05:23 | RADIOLOGY REPORT ---
EXAM: ABDOMEN, SINGLE VIEW HISTORY: LOWER ABDOMINAL AND PELVIC PAIN WITH CRAMPING. DIFFICULT BOWEL MOVEMENTS FOR THREE MONTHS. TECHNIQUE: Supine AP view of the abdomen was obtained. Comparison: CT of the abdomen and pelvis 03/22/17. FINDINGS: Large volume of stool throughout the course of the colon and rectum. No abnormal dilated small bowel loops are seen. No visible pneumoperitoneum. Upper abdominal surgical clips. Scattered vascular calcifications. The lung bases are clear. IMPRESSION: LARGE COLORECTAL STOOL BURDEN. NONOBSTRUCTIVE SMALL BOWEL GAS PATTERN. JOB NUMBER: [id number] [facility]
== END 2018-02-11 09:30 | disposition home or self-care (01) ==
LOC: ER 07:50
DX: K59.00 Constipation, unspecified (principal); R10.30 Lower abdominal pain, unspecified; R11.0 Nausea; I10 Essential (primary) hypertension; J44.9 Chronic obstructive pulmonary disease, unspecified; F17.210 Nicotine dependence, cigarettes, uncomplicated
CPT/HCPCS: 74018; 80048; 81003; 85025; 99283; 99284

== ENCOUNTER → 2018-04-18 | Day surgery (SDC) | payer MEDICARE, BC, OTHER ==
[~2018-04-18] MED LIST: EPINEPHRINE HCL 0.1 MG/ML 10ML SYR IVP ONE; LIDOCAINE 2% MDV (20MG/ML) 20ML VIAL IV ONE; PROPOFOL 10 MG/ML VIAL IV ONE
--- NOTE | 2018-04-19 07:30 | Operative Note ---
DATE OF SURGERY: 04/18/2018 OPERATION: COLONOSCOPY with cold snare polypectomy x3, partial hot snare polypectomy of sigmoid colon polyp, clip application to polyp stalk, and injection of ink. SPECIMENS: Ascending/cecal polyps x3, sigmoid polyp x1. ESTIMATED BLOOD LOSS: Minimum. COMPLICATIONS: None apparent. PREPARATION QUALITY: Fair to poor. PROCEDURE: After informed consent was obtained from the patient, the patient was placed in the left lateral decubitus position in the endoscopy suite, sedated and monitored by the department of anesthesia. Digital rectal exam was unremarkable. A well-lubricated [id number] colonoscope was inserted into the rectum and advanced to the cecum. Preparation quality was fair to poor. Numerous areas were rinsed, fluid evacuated. In the ascending colon and cecum, there were 3 polyps ranging in size from 5-6 mm, sessile, each removed with a cold snare. Minimal bleeding was noted at the sites. The polyps were retrieved without incident. The remainder of the cecum, ascending colon, transverse colon, and descending colon were unremarkable. The sigmoid colon demonstrated severe diverticular changes. There was a polypoid mass-like area in the distal sigmoid colon. Hemoclip was applied to what appeared to be the stalk. I was able to remove a portion of the polyp but given the location, the polyp was tucked behind the fold, which did not allow removal. There was another similar type of polypoid abnormality in that same region which was not removed. I did subsequently inject ink distal to the most distal polypoid mass. Given the diverticular disease, the location and the changes, I believe a sigmoid colon resection may be warranted. As such, inking was performed for purposes of delineation of the distal margin. The rectum was unremarkable in forward and J-turn views. The endoscope was straightened, the rectal ampulla deflated, and the endoscope was removed. RECOMMENDATIONS: The patient shoulder follow a soft low-fiber diet and avoid aspirin and nonsteroidal products if possible for the next 2 weeks. We will refer the patient to Dr. Blanco. As always, thank you for allowing me to participate in the healthcare of your patients. CC: AMANDA AVENDANO MD, FACP Faheem Blanco, DO [facility]
== END | disposition home or self-care (01) ==
LOC: HOP 09:28
PROVIDERS: ATTEND Internal Medicine Gastroenterology
DX: Z12.11 Encounter for screening for malignant neoplasm of colon (principal); D12.2 Benign neoplasm of ascending colon; D12.0 Benign neoplasm of cecum; K63.5 Polyp of colon; K57.30 Diverticulosis of large intestine without perforation or abscess without bleeding; K21.9 Gastro-esophageal reflux disease without esophagitis; K59.00 Constipation, unspecified; E78.00 Pure hypercholesterolemia, unspecified; G25.81 Restless legs syndrome

== ENCOUNTER 2018-06-09 09:29 | Emergency (ER) | payer MEDICARE, BC, OTHER ==
[2018-06-09 10:08] LABS: BASO % 0.7 % (0-6); EOS % 7.5 % (0-6); HEMATOCRIT 46.9 % (42.0-52.0); HEMOGLOBIN 15.3 gm/dl (14.0-18.0); LYMPH % 21.8 % (16-45); MEAN CELL VOLUME 101.1 fl (81-97); MEAN CORPUSCULAR HGB CONC 32.6 g/dl (32-36); MEAN PLATELET VOLUME 10.2 fl (7.4-10.4); PLATELET COUNT 350 K/uL (130-400); RED BLOOD COUNT 4.64 M/uL (4.40-5.70); RED CELL DISTRIBUTION WIDTH 13.4 % (11.5-14.5); WHITE BLOOD COUNT W/O DIFF 10.2 K/uL (4.2-12.2)
[2018-06-09 10:20] LABS: BLOOD UREA NITROGEN 15 mg/dL (8-23); CREATININE 1.2 mg/dL (0.7-1.2); EST GLOMERULAR FILTRATION RATE > 60 mL/min
[2018-06-09 10:23] LABS: GLUCOSE,RANDOM 98 mg/dL (74-109)
--- NOTE | 2018-06-09 10:53 | Emergency Department Record ---
History of Present Illness - General Chief Complaint: Hypertension Stated Complaint: HIGH BP/LOPEZ/DIZZY Time Seen by Provider: 06/09/18 09:52 Source: Patient Mode of Arrival: Ambulatory Limitations: No limitations - History of Present Illness Initial Comments: pt c/o lopez over his l eye that is very bad and also htn, he was taken off of htn med 6mos ago because his bp was running low. he had abdominal surgery last week. his bp has been running high since his surgery. he denies any pain MD Complaint: Other Onset/Timin -: Days(s) Timing: Gradual onset Description: Lightheadedness History of Same: No - [place] Coma Scale Eye Response: (4) Open spontaneously Motor Response: (6) Obeys commands Verbal Response: (5) Oriented [place] Total: 15 - Symptoms of Stroke Onset of Symptoms Date: 06/06/18 - Related Data Home Medications Medication Instructions Recorded Confirmed Last Taken Aspirin [Aspirin EC] 81 mg PO DAILY 06/09/18 06/09/18 1 Day Ago ~06/08/18 Cholecalciferol (Vitamin D3) 1,000 unit PO BID 06/09/18 06/09/18 1 Day Ago [Vitamin D3] ~06/08/18 Levothyroxine Sodium [Synthroid] 100 mcg PO DAILY 06/09/18 06/09/18 1 Day Ago ~06/08/18 Polyethylene Glycol 3350 17 gm PO DAILY 06/09/18 06/09/18 1 Day Ago ~06/08/18 Previous Rx's Medication Instructions Recorded Amoxicillin/Potassium Clav 1 each PO BID #14 tablet 06/09/18 [Augmentin 875Mg/125Mg] Allergies Allergy/AdvReac Type Severity Reaction Status Date / Time Sulfa (Sulfonamide Allergy Unknown PT UNSURE Verified 06/09/18 09:40 Antibiotics) OF REACTION Travel Screening - Travel/Exposure Within Last 30 Days Have you traveled within the last 30 days?: No - Travel/Exposure Within Last Year Have you traveled outside the [place] in the last year?: No - Additonal Travel Details Have you been exposed to anyone with a communicable illness?: No - Travel Symptoms Symptom Screening: None Review of Systems Reviewed: No additional complaints except as noted below Constitutional: Reports: As per HPI. Denies: Chills, Fever, Malaise, Night sweats, Weakness, Weight change Eyes: Reports: As per HPI. Denies: Eye discharge, Eye pain, Photophobia, Vision change ENT: Reports: As per HPI. Denies: Congestion, Dental pain, Ear pain, Epistaxis , Hearing loss, Throat pain Respiratory: Reports: As per HPI. Denies: Cough, Dyspnea, Hemoptysis, Stridor, Wheezes Cardiovascular: Reports: As per HPI. Denies: Arrhythmia, Chest pain, Dyspnea on exertion, Edema, Murmurs, Orthopnea, Palpitations, Paroxysmal nocturnal dyspnea, Rheumatic Fever, Syncope Endocrine: Reports: As per HPI. Denies: Fatigue, Heat or cold intolerance, Polydipsia, Polyuria Gastrointestinal: Reports: As per HPI. Denies: Abdominal pain, Constipation, Diarrhea, Hematemesis, Hematochezia, Melena, Nausea, Vomiting Genitourinary: Reports: As per HPI. Denies: Dysuria, Frequency, Hematuria, Incontinence, Retention, Testicular pain, Testicular mass, Urgency Musculoskeletal: Reports: As per HPI. Denies: Arthralgia, Back pain, Gout, Joint swelling, Myalgia, Neck pain Skin: Reports: As per HPI. Denies: Bruising, Change in color, Change in hair/ nails, Lesions, Pruritus, Rash Neurological: Reports: As per HPI. Denies: Abnormal gait, Confusion, Headache, Numbness, Paresthesias, Seizure, Tingling, Tremors, Vertigo, Weakness Psychiatric: Reports: As per HPI. Denies: Anxiety, Auditory hallucinations, Depression, Homicidal thoughts, Suicidal thoughts, Visual hallucinations Hematological/Lymphatic: Reports: As per HPI. Denies: Anemia, Blood Clots, Easy bleeding, Easy bruising, Swollen glands Past Medical History - SOCIAL HISTORY Smoking Status: Current every day smoker Alcohol Use: None Drug Use: None - RESPIRATORY Hx Respiratory Disorders: Yes Hx COPD: Yes Hx Sleep Apnea: Yes Hx of CPAP: No - CARDIOVASCULAR Hx Cardio Disorders: Yes Hx Abnormal EKG: No Hx Chest Pain: No Hx Deep Vein Thrombosis: No Hx Heart Attack: No Hx Hypertension: Yes Hx Irregular Heartbeat: No Hx Palpitations: No Comment:: hyperlipidemia - NEURO Hx Neuro Disorders: No - GI Hx GI Disorders: Yes Hx Abdominal Pain: No Hx Crohn's Disease: No Hx Diverticulitis: Yes Hx Reflux: Yes Hx Irritable Bowel: No Hx Nausea/Vomiting: No Hx Pancreatitis: No Hx Ulcer: Yes Hx of Polyps: Yes Comment:: bowel mass removed - Hx Genitourinary Disorders: Yes Hx Kidney Stones: Yes Hx Prostate Problems: Yes (enlarged) - ENDOCRINE Hx Endocrine Disorders: Yes Hx Thyroid Disease: Yes - MUSCULOSKELETAL Hx Musculoskeletal Disorders: Yes Hx Arthritis: No - PSYCH Hx Psych Problems: No - HEMATOLOGY/ONCOLOGY Hx Hematology/Oncology Disorders: Yes Hx Cancer: Yes (thyroid) Family Medical History Any Significant Family History?: Yes Hx Heart Disease: Father, Mother Physical Exam - General General Appearance: Alert, Oriented x3, Cooperative, Mild distress - Head Head exam: Normal inspection - Eye Eye exam: Normal appearance, PERRL, EOMI Pupils: Normal accommodation - ENT ENT exam: Normal exam, Mucous membranes moist, Normal external ear exam, Normal orophraynx Ear exam: Normal external inspection. negative: External canal tenderness Nasal Exam: Normal inspection. negative: Discharge, Sinus tenderness Mouth exam: Normal external inspection, Tongue normal Teeth exam: Normal inspection. negative: Dental caries Throat exam: Normal inspection. negative: Tonsillar erythema, Tonsillar exudate - Neck Neck exam: Normal inspection, Full ROM. negative: Tenderness - Respiratory Respiratory exam: Normal lung sounds bilaterally. negative: Respiratory distress - Cardiovascular Cardiovascular Exam: Regular rate, Normal rhythm, Normal heart sounds - GI/Abdominal GI/Abdominal exam: Soft, Normal bowel sounds, Tenderness (healing incision with area of erythema and drainage and packing [which is being treated by dr devries]) - Rectal Rectal exam: Deferred - exam: Deferred - Extremities Extremities exam: Normal inspection, Full ROM, Normal capillary refill. negative: Tenderness - Back Back exam: Reports: Normal inspection, Full ROM. Denies: Muscle spasm, Rash noted, Tenderness - Neurological Neurological exam: Alert, CN II-XII intact, Normal gait, Oriented X3 - Psychiatric Psychiatric exam: Normal affect, Normal mood - Skin Skin exam: Dry, Intact, Normal color, Warm Course Vital Signs 06/09/18 06/09/18 09:32 10:25 Temperature 97.4 F L Pulse Rate 67 Pulse Rate [ 61 Pulse Ox Probe] Respiratory 18 18 Rate Blood Pressure 191/106 Blood Pressure 175/100 [Left Arm] Pulse Ox 93 L 92 L - Reevaluation(s) Reevaluation #1: 06/09/18 11:25 pts bp has improved. his sat is 89-90 which his daughter states is always the case. pt refused anything for lopez. ct shows sinusitis in l frontal. Medical Decision Making - Lab Data Result diagrams: 06/09/18 09:40 06/09/18 09:40 Lab Results 06/09/18 06/09/18 Range/Units 09:40 09:40 WBC 10.2 (4.2-12.2) K/uL RBC 4.64 (4.40-5.70) M/uL Hgb 15.3 (14.0-18.0) gm/dl Hct 46.9 (42.0-52.0) % MCV 101.1 H (81-97) fl MCH 33.0 (27-33) pg MCHC 32.6 (32-36) g/dl RDW 13.4 (11.5-14.5) % Plt Count 350 (130-400) K/uL MPV 10.2 (7.4-10.4) fl Gran % 62.0 (47-80) % Lymphocytes % 21.8 (16-45) % Monocytes % 8.0 (0-9) % Eosinophils % 7.5 H (0-6) % Basophils % 0.7 (0-6) % Sodium 140 (136-145) mmol/L Potassium 5.4 H (3.4-4.5) mmol/L Chloride 101 (98-107) mmol/L Carbon Dioxide 28.0 (22-29) mmol/L Anion Gap 11.0 (7-16) BUN 15 (8-23) mg/dL Creatinine 1.2 (0.7-1.2) mg/dL Estimated GFR > 60 mL/min Random Glucose 98 (74-109) mg/dL Calcium 9.1 (8.8-10.2) mg/dL Disposition Disposition: Discharge Clinical Impression: Hypoxia Sinusitis Qualifiers: Sinusitis location: frontal Chronicity: acute Recurrence: non-recurrent Qualified Code(s): J01.10 - Acute frontal sinusitis, unspecified Hypertension Qualifiers: Hypertension type: essential hypertension Qualified Code(s): I10 - Essential ( primary) hypertension Disposition: Home, Self-Care Condition: (1) Good Instructions: Hypertension (ED), Hypoxia (ED), Sinusitis (ED) Additional Instructions: follow up with family doctor tomorrow regarding blood pressure and low oxygen level. return sooner if worse. Prescriptions: Amoxicillin/Potassium Clav [Augmentin 875Mg/125Mg] 1 each PO BID #14 tablet Forms: Patient Portal Access Quality - Quality Measures Quality Measures: N/A - Blood Pressure Screening Does Patient Have Any of the Following: No Blood Pressure Classification: Hypertensive Reading Systolic Measurement: 191 Diastolic Measurement: 106 Screening for High Blood Pressure: < First Hypertensive BP, F/U Documented > [ G8950] First Hypertensive Follow-up Interventions: Follow-up with rescreen GT 1 day and LT 4 weeks.
--- NOTE | 2018-06-11 10:33 | CT SCAN REPORT ---
EXAM: NONCONTRAST CT OF THE BRAIN HISTORY: HEADACHE. TECHNIQUE: Noncontrast CT of the brain was obtained. Comparison: None. FINDINGS: No midline shift, mass effect, or abnormal intra or extraaxial fluid collection. No cerebral edema, focal mass or intracranial hemorrhage detected. Mild generalized cerebral volume loss, likely appropriate for patient age. Small asymmetric hypodensity in the left caudate body region, may represent remote lacunar infarction. The ventricles are not significantly dilated. The basal cisterns are not effaced. No displaced calvarial fracture. Complete opacification of the left frontal sinus. Partial opacification of the right frontal sinus with aerated secretions. 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 Possible additional smaller 0.4 cm osteoma in the left frontal sinus. Partial opacification of bilateral ethmoid air cells. Mucosal thickening with small polyp or retention cyst at the left maxillary sinus. Small polyp or retention cyst in the right maxillary sinus. The mastoid air cells are clear. IMPRESSION: 1. NO ACUTE INTRACRANIAL FINDINGS. 2. SUGGESTION OF REMOTE LACUNAR INFARCTION INVOLVING THE LEFT CAUDATE. 3. SUGGESTION OF ACUTE ON CHRONIC PARANASAL SINUS DISEASE, ABOVE, WITH SIGNIFICANT OPACIFICATION OF THE FRONTAL SINUSES (GREATER ON THE LEFT). JOB NUMBER: [id number] [facility]
== END 2018-06-09 11:40 | disposition home or self-care (01) ==
LOC: ER 09:29
DX: R09.02 Hypoxemia (principal); I10 Essential (primary) hypertension; J01.10 Acute frontal sinusitis, unspecified; R51 Headache; R42 Dizziness and giddiness; J44.9 Chronic obstructive pulmonary disease, unspecified; F17.210 Nicotine dependence, cigarettes, uncomplicated; Z98.890 Other specified postprocedural states
CPT/HCPCS: 70450; 80048; 85025; 99284

== ENCOUNTER 2019-03-10 07:23 | Day surgery (SDC) | payer MEDICARE, BC, OTHER ==
[~2019-03-10 07:23] MED LIST changes: +ACETAMINOPHEN 1,000 MG/100 ML BTL IVPB ONE; +CEFAZOLIN 2 Gram 2 GM/50 ML BAG IVPB ONE; -EPINEPHRINE HCL 0.1 MG/ML 10ML SYR IVP ONE; -LIDOCAINE 2% MDV (20MG/ML) 20ML VIAL IV ONE; -PROPOFOL 10 MG/ML VIAL IV ONE
[2019-03-10] MEDS ORDERED: PROPOFOL 10 MG/ML VIAL IV ONE (07:24)
[2019-03-10] MEDS ORDERED: ROCURONIUM BROMIDE 50MG/5ML VIAL IV ONE (07:24)
[2019-03-10] MEDS ORDERED: LIDOCAINE 2% MDV (20MG/ML) 20ML VIAL IV ONE (07:24)
[2019-03-10] MEDS ORDERED: ROPIVACAINE HCL (NAROPIN) /PF 5MG/ML 20ML VIAL IV ONE (07:24)
[2019-03-10] MEDS ORDERED: FENTANYL PF 100MCG/2ML VIAL IV ONE (07:24)
[2019-03-10] MEDS ORDERED: SEVOFLURANE 250 ML INH ONE (07:24)
[2019-03-10] MEDS ORDERED: SUCCINYLCHOLINE 20 MG/ML 10ML IVP ONE (07:24)
[2019-03-10] MEDS ORDERED: DEXAMETHASONE 4 MG/ML 1ML VIAL IVP ONE (07:24)
[2019-03-10] MEDS ORDERED: MIDAZOLAM HCL 2MG/2ML VIAL IV ONE (07:24)
[2019-03-10] MEDS ORDERED: ONDANSETRON HCL IV 4 MG/2 ML VIAL IVP ONE (07:24)
[2019-03-10] MEDS ORDERED: NEOSTIGMINE 1 MG/1 ML,10ML VIAL IV ONE (07:24)
[2019-03-10] MEDS ORDERED: GLYCOPYRROLATE 0.2 MG/ML ML IV ONE (07:24)
[2019-03-10] MEDS ORDERED: 0.9 % SODIUM CHLORIDE 1000ML 1,000 ML IV ONE ×2 (08:03→09:30)
[2019-03-10] MEDS ORDERED: HYDROCODONE/APAP 5/325MG TABLET PO ONE (10:32)
--- NOTE | 2019-03-10 17:10 | Operative Note ---
DATE OF SURGERY: 03/10/2019 SURGEON: Faheem Blanco DO PREOPERATIVE DIAGNOSIS: Incisional hernia. POSTOPERATIVE DIAGNOSIS: Incisional hernia. OPERATION: Open incisional herniorrhaphy with mesh secondary to incarcerated hernia containing omentum. INDICATION: The patient is a 79-year-old male who has undergone multiple exploratory laparotomies. He had some in a couple of weeks ago with a ventral hernia. We did discuss repair. Risks, benefits, and alternatives were discussed. Risks include bleeding, infection, acute or chronic pain, recurrence. He understood this fully. Thereafter, consent was signed and questions answered. PROCEDURE: The patient was taken to the operating room and placed in a supine position. General anesthesia was administered per the department of anesthesia. The patient's abdomen was prepped and draped in the usual fashion. Adequate timeout was performed. He did receive preoperative antibiotic as well as tap block per department of anesthesia. At this time, the area around the hernia was anesthetized with a total of 10 mL of 0.25% Sensorcaine with epinephrine. An 8 cm incision was made over the hernia, which was periumbilical in nature. This was carried down to a hernia sac. This was taken back to the fascial edges in a circumferential fashion. The hernia sac was then amputated and passed off the field. The hernia measured about 3.5 cm. Camilla clamps were placed on the fascial edges. Adhesiolysis was done taking down the small bowel, the peritoneum with laparoscopic Metzenbaum scissors. This was completely reduced in a circumferential fashion. There is no enteric injury noted. The hernia itself measured about 3.5 cm. An 11 [address] mesh was obtained. This was placed in the intraperitoneal position. The upper skirt was sutured to the anterior rectus fascia in 10 spots circumferentially around the hernia. We had excellent overlap on all sides. The subcutaneous tissue was then closed with 3-0 Vicryl. The skin was then closed with a 4-0 Vicryl in a running subcuticular fashion. Steri-Strips were applied. He was taken to the recovery room in stable condition. FINDINGS AT THE TIME OF SURGERY: Incisional hernia, repaired as above, containing incarcerated omentum and requiring adhesiolysis. [facility]
== END 2019-03-10 11:16 | disposition home or self-care (01) ==
LOC: SUR 07:23
PROVIDERS: ATTEND Surgery
DX: K43.0 Incisional hernia with obstruction, without gangrene (principal); I10 Essential (primary) hypertension; E03.9 Hypothyroidism, unspecified
CPT/HCPCS: 76942; C1781; J0330; J2405; J2710; J7030